=== PATIENT | female | born 1990 | race Caucasian/White ===

== ENCOUNTER → 2017-01-22 | Outpatient (CLI) | payer BC ==
[~2017-01-22] MED LIST: ADVIL200 MG PO; AMOXICILLIN875 MG PO; CYMBALTA 30MG30 MG PO; DAZIDOX10 MG PO; LORTAB 5/500 501 TAB PO; MACROBID 1100 MG/CAP PO; MOVANTIK25 MG PO; NO HOME MEDICATIONS; NORCO 325 MG-51 TAB PO; NORCO 325 MG-7.1 TAB PO; OXYCONTIN 20MG20 MG PO; PHENERGAN 25 TA25 MG PO; PROBIOTIC FORMU1 CAP PO; SPRINTEC 35 MCG1 TAB PO; ZOFRAN 4MG T4 MG/TAB PO; ZOFRAN ODT4 MG PO
== END ==
LOC: COL.RAD 08:56
DX: M40.40 Postural lordosis, site unspecified (principal); M79.601 Pain in right arm; M79.602 Pain in left arm